=== PATIENT | female | born 1940 | race Caucasian/White ===

== ENCOUNTER 2016-05-07 08:11 | Day surgery (SDC) | payer OTHER ==
[2016-05-07] MEDS ORDERED: PHENERGAN IV PRN (08:42)
[2016-05-07] MEDS ORDERED: TYLENOL PO ONE (08:45)
[2016-05-07] MEDS ORDERED: BENADRYL PO ONE (08:45)
[2016-05-07] MEDS ORDERED: BENADRYL ONE (08:56)
[2016-05-07] MEDS ORDERED: NS 250 ML ONE (08:56)
[2016-05-07] MEDS ORDERED: TYLENOL ONE (08:56)
[2016-05-07] MEDS ORDERED: NS IV ONE (09:00)
[2016-05-07] MEDS ORDERED: REMICADE IV ONE (09:00)
[2016-05-07 13:43] VITALS: BP 126/81
== END 2016-05-07 13:17 | disposition home or self-care (01) ==
LOC: INF 08:11
PROVIDERS: ATTEND Internal Medicine Gastroenterology
DX: K51.00 Ulcerative (chronic) pancolitis without complications (principal); Z79.899 Other long term (current) drug therapy; Z79.890 Hormone replacement therapy; Z79.52 Long term (current) use of systemic steroids
CPT/HCPCS: 96365; 96366; J1745; J7050